=== PATIENT | female | born 1950 | race Caucasian/White ===

== ENCOUNTER → 2016-09-26 | Outpatient (CLI) | payer OTHER, BC ==
[~2016-09-26] MED LIST: ALLOPURINOL100 MG PO; ALPRAZOLAM0.25 M2 PO; ASPIRIN325 MG PO; BENICAR HCT 401 EACH PO; CELEBREX200 MG PO; CENTRUM SILV1 TABLE1 PO; CENTRUM SILVER1 EAC4 PO; CONZIP100 MG PO; CRESTOR10 MG PO; CYCLOBENZAPRINE10 MG PO; CYMBALTA60 MG PO; DICLOFENAC SODI75 MG PO; ENDOCET 5-3251 EACH PO; LEVOTHYROXINE150 MCG PO; LOPRESSOR25 MG PO; LOPRESSOR50 MG PO; Levothroid,Synthroid PO; MICRO-K,K-DUR,10 MEQ PO; MODAFINIL200 MG PO; NEXIUM40 MG PO; OXYCODONE-APAP1 EACH PO; PRISTIQ50 MG PO; Provigil PO; SYNTHROID25 MCG PO; VITAMIN B-122500 MCG SL; VITAMIN D22000 UNIT PO; VITAMIN D250000 UNIT PO; Vicodin,Lortab 5/500 PO; Vitamin B-12 PO; XANAX0.5 MG PO
== END | disposition home or self-care (01) ==
LOC: OPR 08:45 → EDSTATUS 09:00 → OPR 09:00
PROC: 0TB03ZX Excision of Right Kidney, Percutaneous Approach, Diagnostic (ICD-10-PCS; principal; 2016-09-26)
DX: N18.9 Chronic kidney disease, unspecified (principal); Z98.84 Bariatric surgery status
CPT/HCPCS: 77012; 88305 90; 88313 90; 88346 90; 88348 90; J3010

== ENCOUNTER 2017-09-25 14:22 | Inpatient (IN) | payer OTHER, BC ==
[~2017-09-25] VITALS: Ht 162.6 cm; Wt 92.0 kg
[~2017-09-25 14:22] MED LIST changes: +LITE COAT ASPI325 M1 PO
[2017-09-25 15:24] LABS: HEMATOCRIT 40.1 % (36.0-46.0); MCH 31.3 PG (29.0-34.0); MCHC 34.9 G/DL (30.0-36.0); MCV 89.7 FL (83-99); PLATELET COUNT 485 K/uL (156-360); RBC DIS.WIDTH-CV 14.9 % (11.8-14.6); RBC DIS.WIDTH-SD 48.9 % (39-53); RED BLOOD COUNT 4.47 M/uL (3.80-5.20); WHITE BLOOD COUNT 29.8 K/uL (4.1-10.2)
[2017-09-25 15:27] LABS: APPEARANCE SL.HAZY ((CLEAR)); BILIRUBIN NEGATIVE; BLOOD NEGATIVE; COLOR YELLOW ((YELLOW)); GLUCOSE (STRIP) NEGATIVE; KETONES NEGATIVE; LEUKOCYTES MODERATE; NITRITE NEGATIVE; PROTEIN (STRIP) NEGATIVE; SPECIFIC GRAVITY 1.011 (1.000-1.030); UROBILINOGEN 0.2 MG/DL (0.2-1.0)
[2017-09-25 15:35] LABS: ALBUMIN 3.9 g/dL (3.2-4.8); CHLORIDE 98 mEq/L (99-109); POTASSIUM 4.6 mEq/L (3.7-5.4); SODIUM 134 mEq/L (136-147)
[2017-09-25 15:37] LABS: GLUCOSE 137 mg/dL (70-99)
[2017-09-25 15:38] LABS: TOTAL PROTEIN 7.9 g/dL (6.4-8.3)
[2017-09-25 15:39] LABS: TOTAL BILIRUBIN 0.4 mg/dL (0.0-1.0)
[2017-09-25 15:40] LABS: BACTERIA RARE /HPF; EPITHELIAL CELLS 1+ /HPF; MUCUS TRACE /LPF; RED BLOOD CELLS 0-5 /HPF (0-5); UCUL ADDED? YES; WHITE BLOOD CELLS 20-30 /HPF (0-5)
[2017-09-25 15:41] LABS: ALKALINE PHOSPHATASE 112 IU/L (3-129); CREATININE 5.3 mg/dL (0.6-1.3); GFR ESTIMATE (CALCULATED) 9 mL/min/
[2017-09-25 15:43] LABS: AST (GOT) 14 IU/L (2-34)
[2017-09-25 15:44] LABS: ALT (GPT) 7 IU/L (3-49)
[2017-09-25 15:53] LABS: UREA NITROGEN (BUN) 136 mg/dL (9-23)
[2017-09-25 16:02] LABS: LIPASE 1436 U/L (1.0-51.0)
[2017-09-25 16:45] LABS: CARBON DIOXIDE (BICARBONATE) 18.4 MEQ/L (20-31)
[2017-09-25] MEDS ORDERED: XANAX0.5 MG PO (17:46)
[2017-09-25] MEDS ORDERED: LASIX80 MG PO (17:50)
[2017-09-25] MEDS ORDERED: PRILOSEC20 MG PO (17:50)
[2017-09-25] MEDS ORDERED: CRESTOR10 MG PO (17:50)
[2017-09-25] MEDS ORDERED: ROCALTROL0.25 MCG PO (17:50)
[2017-09-25] MEDS ORDERED: COLCRYS0.6 MG PO (17:51)
[2017-09-25] MEDS ORDERED: PREDNISONE20 MG PO (17:52)
[2017-09-25 17:59] LABS: AMYLASE 568 IU/L (1-118)
[2017-09-25 22:27] VITALS: BP 106/56
[2017-09-25 23:35] VITALS: BP 99/55
[2017-09-26 07:18] VITALS: BP 115/63
[2017-09-26 07:31] LABS: ALKALINE PHOSPHATASE 72 IU/L (3-129); ALT (GPT) 7 IU/L (3-49); AST (GOT) 13 IU/L (2-34); CHLORIDE 100 MEQ/L (99-109); LIPASE 516 U/L (1.0-51.0); POTASSIUM 4.3 MEQ/L (3.7-5.4); SODIUM 140 MEQ/L (136-147); TOTAL BILIRUBIN 0.3 MG/DL (0.0-1.0); TOTAL PROTEIN 5.6 G/DL (6.4-8.3)
[2017-09-26 07:31] LABS: BASOPHIL (%) 0.1 % (0-1); EOSINOPHIL (%) 0.4 % (0-5); EOSINOPHIL COUNT 0.1 K/uL (0-0.3); HEMATOCRIT 35.6 % (36.0-46.0); LYMPHOCYTE (%) 8.3 % (15-42); MCH 30.5 PG (29.0-34.0); MCHC 32.6 G/DL (30.0-36.0); MONOCYTE (%) 5.9 % (3-12); MONOCYTE COUNT 1.4 K/uL (0-0.8); NEUTROPHIL (%) 84.3 % (45-76); NEUTROPHIL COUNT 20.3 K/uL (1.8-6.4); PLATELET COUNT 396 K/uL (156-360); RBC DIS.WIDTH-CV 15.5 % (11.8-14.6); RBC DIS.WIDTH-SD 53.6 % (39-53); WHITE BLOOD COUNT 24.1 K/uL (4.1-10.2)
[2017-09-26 07:32] LABS: GLUCOSE 94 mg/dL (70-99)
[2017-09-26 07:33] LABS: CREATININE 4.2 MG/DL (0.6-1.3); GFR ESTIMATE (CALCULATED) 11 mL/min/; UREA NITROGEN (BUN) 121 mg/dL (9-23)
[2017-09-26 07:35] LABS: HEMOGLOBIN 11.6 G/DL (11.9-15.5); MCV 93.7 FL (83-99)
[2017-09-26 16:35] VITALS: BP 123/68
[2017-09-26 22:58] VITALS: BP 108/52
[2017-09-27 03:41] VITALS: BP 98/56
[2017-09-27 06:37] LABS: BASOPHIL (%) 0.1 % (0-1); EOSINOPHIL (%) 5.2 % (0-5); EOSINOPHIL COUNT 0.9 K/uL (0-0.3); HEMATOCRIT 34.2 % (36.0-46.0); IMMATURE GRANULOCYTE (%) 0.5 % (0.0-0.7); LYMPHOCYTE (%) 12.7 % (15-42); LYMPHOCYTE COUNT 2.1 K/uL (1.0-2.8); MCH 30.2 PG (29.0-34.0); MCHC 32.2 G/DL (30.0-36.0); MONOCYTE (%) 7.1 % (3-12); MONOCYTE COUNT 1.2 K/uL (0-0.8); NEUTROPHIL (%) 74.4 % (45-76); NEUTROPHIL COUNT 12.4 K/uL (1.8-6.4); PLATELET COUNT 401 K/uL (156-360); RBC DIS.WIDTH-CV 15.6 % (11.8-14.6); RBC DIS.WIDTH-SD 53.3 % (39-53); RED BLOOD COUNT 3.64 M/uL (3.80-5.20); WHITE BLOOD COUNT 16.7 K/uL (4.1-10.2)
[2017-09-27 07:13] LABS: ALBUMIN 2.9 G/DL (3.2-4.8); ALKALINE PHOSPHATASE 66 IU/L (3-129); ALT (GPT) 8 IU/L (3-49); AST (GOT) 16 IU/L (2-34); CHLORIDE 102 MEQ/L (99-109); CREATININE 3.8 MG/DL (0.6-1.3); GFR ESTIMATE (CALCULATED) 13 mL/min/; GLUCOSE 79 mg/dL (70-99); PHOSPHORUS 7.3 mg/dL (2.5-4.9); POTASSIUM 3.7 MEQ/L (3.7-5.4); SODIUM 145 MEQ/L (136-147); TOTAL BILIRUBIN 0.4 MG/DL (0.0-1.0); TOTAL PROTEIN 5.5 G/DL (6.4-8.3)
[2017-09-27 07:14] LABS: UREA NITROGEN (BUN) 102 mg/dL (9-23)
[2017-09-27 07:53] VITALS: BP 135/59
[2017-09-27 09:53] LABS: CHLORIDE 101 MEQ/L (99-109); CREATININE 3.8 MG/DL (0.6-1.3); GFR ESTIMATE (CALCULATED) 13 mL/min/; GLUCOSE 80 mg/dL (70-99); LIPASE 114 U/L (1.0-51.0); POTASSIUM 3.3 MEQ/L (3.7-5.4); SODIUM 142 MEQ/L (136-147)
[2017-09-27 09:55] LABS: UREA NITROGEN (BUN) 105 mg/dL (9-23)
[2017-09-27 11:45] VITALS: BP 108/57
[2017-09-27 15:22] LABS: MAGNESIUM 2.2 mg/dl (1.3-2.7)
[2017-09-27 16:14] VITALS: BP 106/56
[2017-09-27 19:30] VITALS: BP 111/56
[2017-09-28] VITALS (7 sets, daily range): BP systolic 105–151; BP diastolic 54–66
[2017-09-28 06:52] LABS: BASOPHIL (%) 0.3 % (0-1); EOSINOPHIL (%) 6.7 % (0-5); EOSINOPHIL COUNT 0.8 K/uL (0-0.3); HEMATOCRIT 32.2 % (36.0-46.0); HEMOGLOBIN 10.3 G/DL (11.9-15.5); IMMATURE GRANULOCYTE (%) 0.4 % (0.0-0.7); LYMPHOCYTE (%) 19.8 % (15-42); LYMPHOCYTE COUNT 2.4 K/uL (1.0-2.8); NEUTROPHIL (%) 64.8 % (45-76); NEUTROPHIL COUNT 7.7 K/uL (1.8-6.4); PLATELET COUNT 378 K/uL (156-360); RBC DIS.WIDTH-CV 15.9 % (11.8-14.6); RBC DIS.WIDTH-SD 56.4 % (39-53); RED BLOOD COUNT 3.32 M/uL (3.80-5.20); WHITE BLOOD COUNT 11.9 K/uL (4.1-10.2)
[2017-09-28 07:11] LABS: ALBUMIN 2.7 G/DL (3.2-4.8); ALKALINE PHOSPHATASE 56 IU/L (3-129); ALT (GPT) 8 IU/L (3-49); AST (GOT) 17 IU/L (2-34); CHLORIDE 107 MEQ/L (99-109); CREATININE 3.2 MG/DL (0.6-1.3); GFR ESTIMATE (CALCULATED) 15 mL/min/; GLUCOSE 91 mg/dL (70-99); PHOSPHORUS 5.1 mg/dL (2.5-4.9); SODIUM 145 MEQ/L (136-147); TOTAL BILIRUBIN 0.4 MG/DL (0.0-1.0); TOTAL PROTEIN 5.2 G/DL (6.4-8.3); UREA NITROGEN (BUN) 88 mg/dL (9-23)
[2017-09-28 07:12] LABS: POTASSIUM 4.2 MEQ/L (3.7-5.4)
[2017-09-29 06:53] LABS: ALBUMIN 2.7 G/DL (3.2-4.8); ALKALINE PHOSPHATASE 54 IU/L (3-129); ALT (GPT) 7 IU/L (3-49); AST (GOT) 14 IU/L (2-34); CHLORIDE 107 MEQ/L (99-109); GFR ESTIMATE (CALCULATED) 21 mL/min/; PHOSPHORUS 3.4 mg/dL (2.5-4.9); POTASSIUM 3.6 MEQ/L (3.7-5.4); SODIUM 138 MEQ/L (136-147); TOTAL BILIRUBIN 0.4 MG/DL (0.0-1.0); TOTAL PROTEIN 5.3 G/DL (6.4-8.3); UREA NITROGEN (BUN) 62 mg/dL (9-23)
[2017-09-29 06:55] LABS: CREATININE 2.4 MG/DL (0.6-1.3); GLUCOSE 147 mg/dL (70-99)
[2017-09-29 07:43] VITALS: BP 100/57
[2017-09-29 16:31] VITALS: BP 106/70
[2017-09-29 23:01] VITALS: BP 110/55
[2017-09-30 06:45] LABS: HEMATOCRIT 32.4 % (36.0-46.0); HEMOGLOBIN 10.2 G/DL (11.9-15.5); MCH 30.1 PG (29.0-34.0); MCHC 31.5 G/DL (30.0-36.0); MCV 95.6 FL (83-99); PLATELET COUNT 378 K/uL (156-360); RBC DIS.WIDTH-CV 15.5 % (11.8-14.6); RBC DIS.WIDTH-SD 53.7 % (39-53); RED BLOOD COUNT 3.39 M/uL (3.80-5.20)
[2017-09-30 07:27] LABS: ALBUMIN 2.6 G/DL (3.2-4.8); ALKALINE PHOSPHATASE 53 IU/L (3-129); ALT (GPT) 10 IU/L (3-49); AST (GOT) 13 IU/L (2-34); CHLORIDE 108 MEQ/L (99-109); IRON 49 MCG/DL (35-150); PHOSPHORUS 3.4 mg/dL (2.5-4.9); POTASSIUM 3.3 MEQ/L (3.7-5.4); SODIUM 142 MEQ/L (136-147); TOTAL PROTEIN 5.2 G/DL (6.4-8.3); TRANSFERRIN SATUR. 25 % (20-55); UREA NITROGEN (BUN) 36 mg/dL (9-23)
[2017-09-30 07:41] LABS: CREATININE 1.9 MG/DL (0.6-1.3); GFR ESTIMATE (CALCULATED) 28 mL/min/; GLUCOSE 104 mg/dL (70-99); TOTAL BILIRUBIN 0.3 MG/DL (0.0-1.0)
[2017-09-30 07:44] VITALS: BP 120/65
[2017-09-30 08:36] LABS: INTACT PARATHYROID HORMONE 158 pg/mL (10-69)
[2017-09-30 16:25] VITALS: BP 120/65
[2017-09-30 16:28] VITALS: BP 121/64
[2017-09-30 23:29] VITALS: BP 102/57
[2017-10-01 06:11] LABS: BASOPHIL (%) 0.2 % (0-1); EOSINOPHIL (%) 0.5 % (0-5); EOSINOPHIL COUNT 0.1 K/uL (0-0.3); HEMATOCRIT 33.2 % (36.0-46.0); HEMOGLOBIN 10.6 G/DL (11.9-15.5); IMMATURE GRANULOCYTE (%) 0.3 % (0.0-0.7); LYMPHOCYTE (%) 10.6 % (15-42); MCH 30.8 PG (29.0-34.0); MCHC 31.9 G/DL (30.0-36.0); MCV 96.5 FL (83-99); MONOCYTE (%) 1.5 % (3-12); MONOCYTE COUNT 0.1 K/uL (0-0.8); NEUTROPHIL (%) 86.9 % (45-76); NEUTROPHIL COUNT 8.2 K/uL (1.8-6.4); PLATELET COUNT 362 K/uL (156-360); RBC DIS.WIDTH-CV 15.7 % (11.8-14.6); RBC DIS.WIDTH-SD 55.4 % (39-53); RED BLOOD COUNT 3.44 M/uL (3.80-5.20); WHITE BLOOD COUNT 9.5 K/uL (4.1-10.2)
[2017-10-01 06:36] LABS: ALBUMIN 2.7 G/DL (3.2-4.8); ALKALINE PHOSPHATASE 65 IU/L (3-129); ALT (GPT) 9 IU/L (3-49); AST (GOT) 11 IU/L (2-34); CHLORIDE 112 MEQ/L (99-109); CREATININE 1.6 MG/DL (0.6-1.3); GFR ESTIMATE (CALCULATED) 34 mL/min/; GLUCOSE 175 mg/dL (70-99); PHOSPHORUS 3.2 mg/dL (2.5-4.9); POTASSIUM 4.6 MEQ/L (3.7-5.4); SODIUM 141 MEQ/L (136-147); TOTAL BILIRUBIN 0.2 MG/DL (0.0-1.0); TOTAL PROTEIN 4.9 G/DL (6.4-8.3); UREA NITROGEN (BUN) 28 mg/dL (9-23)
[2017-10-01 07:49] VITALS: BP 113/58
[2017-10-01 14:02] VITALS: BP 141/67
[2017-10-01 19:58] VITALS: BP 123/62
[2017-10-01 23:05] VITALS: BP 113/58
[2017-10-02 04:10] VITALS: BP 96/56
[2017-10-02 06:05] LABS: ALBUMIN 2.5 G/DL (3.2-4.8); CHLORIDE 110 MEQ/L (99-109); CREATININE 1.7 MG/DL (0.6-1.3); GFR ESTIMATE (CALCULATED) 32 mL/min/; GLUCOSE 168 mg/dL (70-99); PHOSPHORUS 3.2 mg/dL (2.5-4.9); POTASSIUM 4.6 MEQ/L (3.7-5.4); SODIUM 141 MEQ/L (136-147); UREA NITROGEN (BUN) 26 mg/dL (9-23)
[2017-10-02 07:35] VITALS: BP 108/79
[2017-10-02 08:29] LABS: HEMATOCRIT 32.7 % (36.0-46.0); HEMOGLOBIN 10.5 G/DL (11.9-15.5); MCH 31.5 PG (29.0-34.0); MCHC 32.1 G/DL (30.0-36.0); MCV 98.2 FL (83-99); PLATELET COUNT 348 K/uL (156-360); RED BLOOD COUNT 3.33 M/uL (3.80-5.20); WHITE BLOOD COUNT 20.8 K/uL (4.1-10.2)
[2017-10-02 08:59] LABS: ALKALINE PHOSPHATASE 68 IU/L (3-129); ALT (GPT) 23 IU/L (3-49); AST (GOT) 37 IU/L (2-34); LIPASE 21 U/L (1.0-51.0); TOTAL BILIRUBIN 0.2 MG/DL (0.0-1.0); TOTAL PROTEIN 4.8 G/DL (6.4-8.3)
[2017-10-02 16:33] VITALS: BP 125/58
[2017-10-02 22:45] VITALS: BP 117/60
[2017-10-03 06:21] LABS: HEMATOCRIT 29.6 % (36.0-46.0); HEMOGLOBIN 9.4 G/DL (11.9-15.5); MCH 30.8 PG (29.0-34.0); MCHC 31.8 G/DL (30.0-36.0); PLATELET COUNT 351 K/uL (156-360); RBC DIS.WIDTH-CV 15.8 % (11.8-14.6); RBC DIS.WIDTH-SD 55.7 % (39-53); RED BLOOD COUNT 3.05 M/uL (3.80-5.20); WHITE BLOOD COUNT 18.2 K/uL (4.1-10.2)
[2017-10-03 06:45] VITALS: BP 141/77
[2017-10-03 06:45] LABS: ALBUMIN 2.5 G/DL (3.2-4.8); ALKALINE PHOSPHATASE 72 IU/L (3-129); ALT (GPT) 23 IU/L (3-49); AST (GOT) 23 IU/L (2-34); CHLORIDE 110 MEQ/L (99-109); CREATININE 1.7 MG/DL (0.6-1.3); GFR ESTIMATE (CALCULATED) 32 mL/min/; GLUCOSE 134 mg/dL (70-99); POTASSIUM 5.2 MEQ/L (3.7-5.4); SODIUM 141 MEQ/L (136-147); TOTAL BILIRUBIN 0.2 MG/DL (0.0-1.0); TOTAL PROTEIN 4.7 G/DL (6.4-8.3); UREA NITROGEN (BUN) 28 mg/dL (9-23)
== END 2017-10-03 11:10 | disposition home health service (06) | DRG 417 ==
LOC: EME 14:22 → 5EAST 20:06 → EDOF 20:06 → ENRESERV 20:07 → 5EAST 21:46
PROVIDERS: Family Medicine; Internal Medicine; Internal Medicine Nephrology; Nurse Practitioner Family; Physician Assistant Surgical
PROC: 0FT44ZZ Resection of Gallbladder, Percutaneous Endoscopic Approach (ICD-10-PCS; principal; 2017-10-01)
DX: K80.10 Calculus of gallbladder with chronic cholecystitis without obstruction (principal); N17.0 Acute kidney failure with tubular necrosis; K85.10 Biliary acute pancreatitis without necrosis or infection; N39.0 Urinary tract infection, site not specified; N18.4 Chronic kidney disease, stage 4 (severe); I48.0 Paroxysmal atrial fibrillation; E03.9 Hypothyroidism, unspecified; E27.9 Disorder of adrenal gland, unspecified; E78.5 Hyperlipidemia, unspecified; K21.9 Gastro-esophageal reflux disease without esophagitis; E87.2 Acidosis; N25.81 Secondary hyperparathyroidism of renal origin; F41.9 Anxiety disorder, unspecified; N27.1 Small kidney, bilateral; F32.9 Major depressive disorder, single episode, unspecified; E66.9 Obesity, unspecified; I12.9 Hypertensive chronic kidney disease with stage 1 through stage 4 chronic kidney disease, or unspecified chronic kidney disease; E87.6 Hypokalemia; D64.9 Anemia, unspecified; E86.0 Dehydration; L27.0 Generalized skin eruption due to drugs and medicaments taken internally; Z68.33 Body mass index [BMI] 33.0-33.9, adult; Z98.84 Bariatric surgery status
CPT/HCPCS: 71046; 74176; 76705; 76770; 78227; 80048 91; 80053; 80069; 80076; 81003; 82150; 82306; 82803; 82948; 83540; 83605; 83690; 83735; 83970; 84100; 84132 91; 84466; 85025; 85027; 87040; 87086; 88304; 90686; 99281; 99285; A9537; C9113; J0330; J1100; J1170; J1720; J2270; J2405; J2543; J2710; J2805; J3010; J3370; J3480; J7030; J7050; S0074

== ENCOUNTER 2017-10-22 12:04 | Inpatient (IN) | payer OTHER, BC ==
[~2017-10-22] VITALS: Ht 162.6 cm; Wt 98.9 kg
[~2017-10-22 12:04] MED LIST changes: +COLCRYS0.6 MG PO; +LASIX80 MG PO; +PREDNISONE20 MG PO; +PRILOSEC20 MG PO; +ROCALTROL0.25 MCG PO
[2017-10-22 12:57] LABS: HEMATOCRIT 41.3 % (36.0-46.0); HEMOGLOBIN 13.5 G/DL (11.9-15.5); MCH 31.3 PG (29.0-34.0); MCHC 32.7 G/DL (30.0-36.0); MCV 95.6 FL (83-99); PLATELET COUNT 376 K/uL (156-360); RBC DIS.WIDTH-CV 15.4 % (11.8-14.6); RBC DIS.WIDTH-SD 54.1 % (39-53); RED BLOOD COUNT 4.32 M/uL (3.80-5.20); WHITE BLOOD COUNT 20.8 K/uL (4.1-10.2)
[2017-10-22 13:06] LABS: ALBUMIN 3.5 g/dL (3.2-4.8)
[2017-10-22 13:07] LABS: CHLORIDE 103 mEq/L (99-109); POTASSIUM 4.5 mEq/L (3.7-5.4); SODIUM 138 mEq/L (136-147)
[2017-10-22 13:09] LABS: GLUCOSE 93 mg/dL (70-99); TOTAL PROTEIN 6.7 g/dL (6.4-8.3)
[2017-10-22 13:11] LABS: TOTAL BILIRUBIN 0.6 mg/dL (0.0-1.0)
[2017-10-22 13:12] LABS: ALKALINE PHOSPHATASE 105 IU/L (3-129)
[2017-10-22 13:13] LABS: CREATININE 2.5 mg/dL (0.6-1.3); GFR ESTIMATE (CALCULATED) 20 mL/min/
[2017-10-22 13:14] LABS: AST (GOT) 18 IU/L (2-34); UREA NITROGEN (BUN) 49 mg/dL (9-23)
[2017-10-22 13:16] LABS: ALT (GPT) 24 IU/L (3-49)
[2017-10-22 14:42] LABS: BASOPHIL (%) 0.2 % (0-1); EOSINOPHIL (%) 0.8 % (0-5); EOSINOPHIL COUNT 0.2 K/uL (0-0.3); IMMATURE GRANULOCYTE (%) 1.3 % (0.0-0.7); LYMPHOCYTE (%) 13.1 % (15-42); LYMPHOCYTE COUNT 2.7 K/uL (1.0-2.8); MONOCYTE (%) 11.8 % (3-12); MONOCYTE COUNT 2.4 K/uL (0-0.8); NEUTROPHIL (%) 72.8 % (45-76); NEUTROPHIL COUNT 14.9 K/uL (1.8-6.4)
[2017-10-22 15:39] LABS: APPEARANCE CLEAR ((CLEAR)); BILIRUBIN NEGATIVE; BLOOD NEGATIVE; COLOR YELLOW ((YELLOW)); GLUCOSE (STRIP) NEGATIVE; KETONES NEGATIVE; LEUKOCYTES NEGATIVE; NITRITE NEGATIVE; PROTEIN (STRIP) NEGATIVE; SPECIFIC GRAVITY 1.009 (1.000-1.030); UCUL ADDED? NO; UROBILINOGEN 0.2 MG/DL (0.2-1.0)
[2017-10-22] MEDS ORDERED: K-DUR10 MEQ PO (16:29)
[2017-10-22] MEDS ORDERED: ALDACTONE50 MG PO (16:29)
[2017-10-22] MEDS ORDERED: TRAMADOL HCL50 MG PO (16:30)
[2017-10-22 19:12] VITALS: BP 106/61
[2017-10-22 23:54] VITALS: BP 118/65
[2017-10-23 03:50] VITALS: BP 95/54
[2017-10-23 04:15] VITALS: BP 100/54
[2017-10-23 11:41] VITALS: BP 111/51
[2017-10-23 16:01] VITALS: BP 104/55
[2017-10-23 19:47] VITALS: BP 108/59
[2017-10-24] VITALS (7 sets, daily range): BP systolic 97–131; BP diastolic 53–64
[2017-10-25 04:18] VITALS: BP 112/67
[2017-10-25 05:47] LABS: HEMATOCRIT 30.4 % (36.0-46.0); MCH 31.2 PG (29.0-34.0); MCHC 32.2 G/DL (30.0-36.0); MCV 96.8 FL (83-99); RBC DIS.WIDTH-CV 15.7 % (11.8-14.6); RBC DIS.WIDTH-SD 55.6 % (39-53)
[2017-10-25 05:48] LABS: HEMOGLOBIN 9.8 G/DL (11.9-15.5); RED BLOOD COUNT 3.14 M/uL (3.80-5.20)
[2017-10-25 05:58] LABS: CHLORIDE 109 MEQ/L (99-109); GLUCOSE 105 mg/dL (70-99); POTASSIUM 3.9 MEQ/L (3.7-5.4); SODIUM 138 MEQ/L (136-147)
[2017-10-25 05:59] LABS: CREATININE 1.4 MG/DL (0.6-1.3); GFR ESTIMATE (CALCULATED) 40 mL/min/; UREA NITROGEN (BUN) 15 mg/dL (9-23)
[2017-10-25 06:03] LABS: BASOPHIL (%) 0.2 % (0-1); EOSINOPHIL (%) 2.6 % (0-5); EOSINOPHIL COUNT 0.4 K/uL (0-0.3); HEMATOLOGY COMMENT 1 SN; IMMATURE GRANULOCYTE (%) 0.6 % (0.0-0.7); LYMPHOCYTE COUNT 2.4 K/uL (1.0-2.8); MONOCYTE (%) 14.6 % (3-12); NEUTROPHIL COUNT 9.1 K/uL (1.8-6.4); PLAT.SUFFICIENCY ADEQUATE; PLATELET COUNT UNABLE TO REPORT K/uL (156-360)
[2017-10-25 07:22] VITALS: BP 95/50
[2017-10-25] MEDS ORDERED: LASIX40 MG PO (08:40)
[2017-10-25] MEDS ORDERED: PANTOPRAZOLE SO40 MG PO (08:41)
[2017-10-25] MEDS ORDERED: CARAFATE100 MG/ML PO (08:51)
== END 2017-10-25 11:48 | disposition home or self-care (01) | DRG 381 ==
LOC: EME 12:04 → EDOF 16:52 → 5WEST 16:52 → EDOF 16:52 → ENRESERV 16:53 → 5WEST 18:59 → ENRESERV 10-24 14:30 → 5WEST 10-24 18:28
PROVIDERS: Internal Medicine; Specialist
PROC: 0DB68ZX Excision of Stomach, Via Natural or Artificial Opening Endoscopic, Diagnostic (ICD-10-PCS; principal; 2017-10-24)
DX: K28.9 Gastrojejunal ulcer, unspecified as acute or chronic, without hemorrhage or perforation (principal); N17.9 Acute kidney failure, unspecified; E78.5 Hyperlipidemia, unspecified; I10 Essential (primary) hypertension; M54.5 Low back pain; E03.9 Hypothyroidism, unspecified; E66.9 Obesity, unspecified; G89.4 Chronic pain syndrome; F41.9 Anxiety disorder, unspecified; R19.7 Diarrhea, unspecified; K29.70 Gastritis, unspecified, without bleeding; R10.9 Unspecified abdominal pain; F32.9 Major depressive disorder, single episode, unspecified; D72.829 Elevated white blood cell count, unspecified; M19.90 Unspecified osteoarthritis, unspecified site; K21.9 Gastro-esophageal reflux disease without esophagitis; Z98.84 Bariatric surgery status; Z90.49 Acquired absence of other specified parts of digestive tract; Z88.1 Allergy status to other antibiotic agents; Z88.8 Allergy status to other drugs, medicaments and biological substances; Z68.37 Body mass index [BMI] 37.0-37.9, adult
CPT/HCPCS: 74176; 80048; 80053; 81003; 82272; 83605; 85025; 85027; 87040; 87493; 87641; 88305; 88342 TC; 99281; 99285; C9113; G0378; J0692; J1644; J2270; J2405; J7042; J7120

== ENCOUNTER 2017-11-02 16:29 | Inpatient (IN) | payer OTHER, BC ==
[~2017-11-02] VITALS: Ht 162.6 cm; Wt 89.4 kg
[~2017-11-02 16:29] MED LIST changes: +ALDACTONE50 MG PO; +CARAFATE100 MG/ML PO; +K-DUR10 MEQ PO; +LASIX40 MG PO; +PANTOPRAZOLE SO40 MG PO; +TRAMADOL HCL50 MG PO
[2017-11-02 17:53] VITALS: BP 115/74
[2017-11-02 19:36] VITALS: BP 100/52
[2017-11-02 20:26] LABS: IRON 37 MCG/DL (35-150); TRANSFERRIN (TIBC) 222.3 mg/dL (215-380); TRANSFERRIN SATUR. 17 % (20-55)
[2017-11-02 20:43] LABS: FERRITIN 40 NG/ML (10-291)
[2017-11-02 20:59] LABS: FOLIC ACID (FOLATE) > 22.0 NG/ML (5.0-22.0)
[2017-11-02 23:31] VITALS: BP 116/58
[2017-11-03 03:49] VITALS: BP 105/52
[2017-11-03 06:18] LABS: HEMATOCRIT 32.1 % (36.0-46.0); HEMOGLOBIN 10.3 G/DL (11.9-15.5); MCH 30.7 PG (29.0-34.0); MCHC 32.1 G/DL (30.0-36.0); MCV 95.8 FL (83-99); PLATELET COUNT 338 K/uL (156-360); RBC DIS.WIDTH-CV 14.8 % (11.8-14.6); RBC DIS.WIDTH-SD 51.7 % (39-53); RED BLOOD COUNT 3.35 M/uL (3.80-5.20); WHITE BLOOD COUNT 6.5 K/uL (4.1-10.2)
[2017-11-03 06:52] LABS: ALBUMIN 2.5 G/DL (3.2-4.8); ALKALINE PHOSPHATASE 85 IU/L (3-129); ALT (GPT) 9 IU/L (3-49); AST (GOT) 16 IU/L (2-34); CHLORIDE 105 MEQ/L (99-109); CREATININE 2.5 MG/DL (0.6-1.3); GFR ESTIMATE (CALCULATED) 20 mL/min/; GLUCOSE 114 mg/dL (70-99); SODIUM 137 MEQ/L (136-147); TOTAL BILIRUBIN 0.4 MG/DL (0.0-1.0); TOTAL PROTEIN 4.5 G/DL (6.4-8.3); UREA NITROGEN (BUN) 18 mg/dL (9-23)
[2017-11-03 06:53] LABS: POTASSIUM 4.1 MEQ/L (3.7-5.4)
[2017-11-03 07:10] LABS: LIPASE 20 U/L (1.0-51.0)
[2017-11-03 07:18] VITALS: BP 100/65
[2017-11-03 10:44] LABS: C DIFF TOXIN NEGATIVE (NEGATIVE)
[2017-11-03 11:36] VITALS: BP 113/65
[2017-11-03] MEDS ORDERED: BENTYL10 MG PO (13:48)
[2017-11-03 15:43] VITALS: BP 114/66
[2017-11-04 00:28] VITALS: BP 103/58
[2017-11-04 07:10] VITALS: BP 108/58
[2017-11-04] MEDS ORDERED: METRONIDAZOLE500 MG PO (14:29)
[2017-11-04] MEDS ORDERED: LOPERAMIDE2 MG PO (14:30)
[2017-11-04 16:23] VITALS: BP 90/51
[2017-11-04 17:01] VITALS: BP 117/58
== END 2017-11-04 17:21 | disposition home or self-care (01) | DRG 384 ==
LOC: 2EAST 16:29 → ENRESERV 16:31 → 2EAST 17:26 → ENPENDDIS 11-04 → 2EAST 11-04 17:21
PROVIDERS: Internal Medicine; Specialist
DX: K25.9 Gastric ulcer, unspecified as acute or chronic, without hemorrhage or perforation (principal); K52.9 Noninfective gastroenteritis and colitis, unspecified; R19.7 Diarrhea, unspecified; G89.4 Chronic pain syndrome; I12.9 Hypertensive chronic kidney disease with stage 1 through stage 4 chronic kidney disease, or unspecified chronic kidney disease; E86.0 Dehydration; E78.5 Hyperlipidemia, unspecified; E03.9 Hypothyroidism, unspecified; N18.3 Chronic kidney disease, stage 3 (moderate); F32.9 Major depressive disorder, single episode, unspecified; E66.9 Obesity, unspecified; D64.9 Anemia, unspecified; E27.8 Other specified disorders of adrenal gland; R63.4 Abnormal weight loss; Z68.33 Body mass index [BMI] 33.0-33.9, adult; Z88.1 Allergy status to other antibiotic agents; Z98.84 Bariatric surgery status
CPT/HCPCS: 71045; 76770; 80053; 82150; 82150 91; 82607; 82728; 82746; 83540; 83690; 84466; 85025; 85027; 87177; 87493; 87506; C9113; J0744; J7030; S0030

== ENCOUNTER 2017-11-22 13:31 | Inpatient (IN) | payer OTHER, BC ==
[~2017-11-22] VITALS: Ht 162.6 cm; Wt 88.4 kg
[~2017-11-22 13:31] MED LIST changes: +BENTYL10 MG PO; +LOPERAMIDE2 MG PO; +METRONIDAZOLE500 MG PO
[2017-11-22 14:00] LABS: HEMATOCRIT 31.6 % (36.0-46.0); HEMOGLOBIN 10.1 G/DL (11.9-15.5); MCH 30.5 PG (29.0-34.0); MCV 95.5 FL (83-99); RBC DIS.WIDTH-SD 52.4 % (39-53); RED BLOOD COUNT 3.31 M/uL (3.80-5.20); WHITE BLOOD COUNT 9.5 K/uL (4.1-10.2)
[2017-11-22 14:18] LABS: PLATELET COUNT 249 K/uL (156-360)
[2017-11-22 14:19] LABS: ALBUMIN 2.8 g/dL (3.2-4.8); CHLORIDE 111 mEq/L (99-109); SODIUM 138 mEq/L (136-147)
[2017-11-22 14:21] LABS: GLUCOSE 89 mg/dL (70-99); TOTAL PROTEIN 5.7 g/dL (6.4-8.3)
[2017-11-22 14:23] LABS: TOTAL BILIRUBIN 0.4 mg/dL (0.0-1.0)
[2017-11-22 14:25] LABS: ALKALINE PHOSPHATASE 102 IU/L (3-129); GFR ESTIMATE (CALCULATED) 26 mL/min/
[2017-11-22 14:26] LABS: UREA NITROGEN (BUN) 20 mg/dL (9-23)
[2017-11-22 14:27] LABS: AST (GOT) 21 IU/L (2-34)
[2017-11-22 14:28] LABS: ALT (GPT) 8 IU/L (3-49)
[2017-11-22 14:29] LABS: POTASSIUM 6.2 mEq/L (3.7-5.4)
[2017-11-22 14:39] LABS: LIPASE 16 U/L (1.0-51.0)
[2017-11-22 14:48] LABS: TROP-I INTERPRETATION NEGATIVE; TROPONIN-I < 0.01 ng/mL (0.0-0.30)
[2017-11-22 14:51] LABS: APPEARANCE CLEAR ((CLEAR)); BILIRUBIN NEGATIVE; BLOOD NEGATIVE; COLOR YELLOW ((YELLOW)); GLUCOSE (STRIP) NEGATIVE; KETONES NEGATIVE; LEUKOCYTES NEGATIVE; NITRITE NEGATIVE; PROTEIN (STRIP) NEGATIVE; UCUL ADDED? NO; UROBILINOGEN 0.2 MG/DL (0.2-1.0)
[2017-11-22] MEDS ORDERED: XANAX0.5 MG PO (16:33)
[2017-11-22] MEDS ORDERED: VITAMIN D-32000 UNI2 PO (16:44)
[2017-11-22] MEDS ORDERED: LASIX40 MG PO (16:47)
[2017-11-22] MEDS ORDERED: LOPRESSOR25 MG PO (16:48)
[2017-11-22] MEDS ORDERED: CARAFATE100 MG/ML PO (16:50)
[2017-11-22] MEDS ORDERED: PARICALCITOL1 MCG PO (16:52)
[2017-11-22] MEDS ORDERED: PROMETHAZINE HC25 M1 PO (16:53)
[2017-11-22 19:03] VITALS: BP 100/70
[2017-11-22 20:11] VITALS: BP 106/56
[2017-11-22 23:39] VITALS: BP 122/56
[2017-11-23 06:31] LABS: HEMOGLOBIN 9.4 G/DL (11.9-15.5); MCH 29.6 PG (29.0-34.0); MCHC 31.3 G/DL (30.0-36.0); MCV 94.3 FL (83-99); PLATELET COUNT 235 K/uL (156-360); RBC DIS.WIDTH-CV 14.9 % (11.8-14.6); RBC DIS.WIDTH-SD 52.1 % (39-53); RED BLOOD COUNT 3.18 M/uL (3.80-5.20); WHITE BLOOD COUNT 8.5 K/uL (4.1-10.2)
[2017-11-23 06:54] LABS: ALBUMIN 2.4 G/DL (3.2-4.8); ALKALINE PHOSPHATASE 79 IU/L (3-129); ALT (GPT) 5 IU/L (3-49); AST (GOT) 13 IU/L (2-34); CHLORIDE 109 MEQ/L (99-109); CREATININE 1.8 MG/DL (0.6-1.3); GFR ESTIMATE (CALCULATED) 30 mL/min/; GLUCOSE 96 mg/dL (70-99); SODIUM 138 MEQ/L (136-147); TOTAL BILIRUBIN 0.5 MG/DL (0.0-1.0); TOTAL PROTEIN 4.3 G/DL (6.4-8.3); UREA NITROGEN (BUN) 19 mg/dL (9-23)
[2017-11-23 06:59] LABS: POTASSIUM 4.3 MEQ/L (3.7-5.4)
[2017-11-23 07:21] VITALS: BP 130/66
[2017-11-23 17:00] VITALS: BP 109/67
[2017-11-24] VITALS: BP 120/70
[2017-11-24 07:01] LABS: ALBUMIN 2.6 G/DL (3.2-4.8); CHLORIDE 107 MEQ/L (99-109); CREATININE 1.7 MG/DL (0.6-1.3); GFR ESTIMATE (CALCULATED) 32 mL/min/; GLUCOSE 103 mg/dL (70-99); POTASSIUM 3.9 MEQ/L (3.7-5.4); SODIUM 140 MEQ/L (136-147); UREA NITROGEN (BUN) 18 mg/dL (9-23)
[2017-11-24 07:09] LABS: PHOSPHORUS 4.8 mg/dL (2.5-4.9)
[2017-11-24 07:10] VITALS: BP 117/57
[2017-11-24 15:00] VITALS: BP 136/62
[2017-11-25] VITALS: BP 122/70
[2017-11-25 07:35] LABS: ALBUMIN 2.6 G/DL (3.2-4.8); CHLORIDE 106 MEQ/L (99-109); GFR ESTIMATE (CALCULATED) 26 mL/min/; GLUCOSE 101 mg/dL (70-99); PHOSPHORUS 4.8 mg/dL (2.5-4.9); POTASSIUM 4.2 MEQ/L (3.7-5.4); SODIUM 138 MEQ/L (136-147); UREA NITROGEN (BUN) 23 mg/dL (9-23)
[2017-11-25 09:25] VITALS: BP 110/55
[2017-11-25 15:00] VITALS: BP 128/63
[2017-11-25 23:28] VITALS: BP 139/67
[2017-11-26 06:21] LABS: ALBUMIN 2.7 G/DL (3.2-4.8); CHLORIDE 108 MEQ/L (99-109); CREATININE 1.8 MG/DL (0.6-1.3); GFR ESTIMATE (CALCULATED) 30 mL/min/; GLUCOSE 93 mg/dL (70-99); PHOSPHORUS 4.4 mg/dL (2.5-4.9); POTASSIUM 3.4 MEQ/L (3.7-5.4); SODIUM 141 MEQ/L (136-147); UREA NITROGEN (BUN) 21 mg/dL (9-23)
[2017-11-26 13:49] VITALS: BP 108/62
[2017-11-26 16:12] VITALS: BP 131/67
[2017-11-26 23:25] VITALS: BP 117/56
[2017-11-27 06:02] LABS: BASOPHIL (%) 0.4 % (0-1); EOSINOPHIL (%) 3.9 % (0-5); EOSINOPHIL COUNT 0.3 K/uL (0-0.3); HEMATOCRIT 31.7 % (36.0-46.0); IMMATURE GRANULOCYTE (%) 0.1 % (0.0-0.7); LYMPHOCYTE (%) 32.9 % (15-42); LYMPHOCYTE COUNT 2.6 K/uL (1.0-2.8); MCH 29.2 PG (29.0-34.0); MCHC 31.5 G/DL (30.0-36.0); MCV 92.7 FL (83-99); MONOCYTE (%) 10.5 % (3-12); MONOCYTE COUNT 0.8 K/uL (0-0.8); NEUTROPHIL (%) 52.2 % (45-76); NEUTROPHIL COUNT 4.1 K/uL (1.8-6.4); RBC DIS.WIDTH-SD 51.2 % (39-53); RED BLOOD COUNT 3.42 M/uL (3.80-5.20); WHITE BLOOD COUNT 7.9 K/uL (4.1-10.2)
[2017-11-27 06:27] LABS: PLATELET COUNT 325 K/uL (156-360)
[2017-11-27 07:48] VITALS: BP 156/72
[2017-11-27 07:55] LABS: ALBUMIN 3.3 G/DL (3.2-4.8); ALKALINE PHOSPHATASE 74 IU/L (3-129); ALT (GPT) 6 IU/L (3-49); AST (GOT) 13 IU/L (2-34); CHLORIDE 105 MEQ/L (99-109); CREATININE 1.5 MG/DL (0.6-1.3); GFR ESTIMATE (CALCULATED) 37 mL/min/; GLUCOSE 92 mg/dL (70-99); IRON 23 MCG/DL (35-150); POTASSIUM 3.1 MEQ/L (3.7-5.4); SODIUM 141 MEQ/L (136-147); TOTAL BILIRUBIN 0.5 MG/DL (0.0-1.0); TRANSFERRIN (TIBC) 212.4 mg/dL (215-380); TRANSFERRIN SATUR. 11 % (20-55); UREA NITROGEN (BUN) 21 mg/dL (9-23)
[2017-11-27 08:00] LABS: TOTAL PROTEIN 6.1 G/DL (6.4-8.3)
[2017-11-27 08:57] LABS: INTER. NORMALIZED RATIO 1.1
[2017-11-27 09:00] LABS: PTT 27.1 SEC (25-37)
[2017-11-27 09:17] LABS: FERRITIN 23 NG/ML (10-291)
[2017-11-27 09:25] LABS: FOLIC ACID (FOLATE) > 22.0 NG/ML (5.0-22.0)
[2017-11-27 09:58] LABS: MAGNESIUM 1.8 mg/dl (1.3-2.7)
[2017-11-27 16:57] VITALS: BP 126/59
[2017-11-27 23:25] VITALS: BP 136/72
[2017-11-28 08:36] VITALS: BP 146/69
[2017-11-28 09:37] LABS: CHLORIDE 106 MEQ/L (99-109); CREATININE 1.4 MG/DL (0.6-1.3); GFR ESTIMATE (CALCULATED) 40 mL/min/; GLUCOSE 157 mg/dL (70-99); MAGNESIUM 1.6 mg/dl (1.3-2.7); POTASSIUM 3.6 MEQ/L (3.7-5.4); SODIUM 141 MEQ/L (136-147); UREA NITROGEN (BUN) 20 mg/dL (9-23)
[2017-11-28] MEDS ORDERED: TYLENOL REGULA325 MG PO (13:04)
[2017-11-28] MEDS ORDERED: FUROSEMIDE80 MG PO (13:05)
[2017-11-28] MEDS ORDERED: MAG-OXIDE400 MG PO (13:06)
== END 2017-11-28 14:28 | disposition home or self-care (01) | DRG 683 ==
LOC: EME 13:31 → 5EAST 15:35 → EDOF 15:35 → ENRESERV 15:41 → 5EAST 16:47
PROVIDERS: Family Medicine; Internal Medicine; Internal Medicine Nephrology; Nurse Practitioner Acute Care
PROC: 0BBC3ZX Excision of Right Upper Lung Lobe, Percutaneous Approach, Diagnostic (ICD-10-PCS; principal; 2017-11-27)
DX: N17.0 Acute kidney failure with tubular necrosis (principal); E87.5 Hyperkalemia; E88.09 Other disorders of plasma-protein metabolism, not elsewhere classified; R91.8 Other nonspecific abnormal finding of lung field; I13.0 Hypertensive heart and chronic kidney disease with heart failure and stage 1 through stage 4 chronic kidney disease, or unspecified chronic kidney disease; I50.32 Chronic diastolic (congestive) heart failure; N18.3 Chronic kidney disease, stage 3 (moderate); I95.9 Hypotension, unspecified; N39.0 Urinary tract infection, site not specified; L03.116 Cellulitis of left lower limb; L03.115 Cellulitis of right lower limb; N25.81 Secondary hyperparathyroidism of renal origin; K21.9 Gastro-esophageal reflux disease without esophagitis; I48.0 Paroxysmal atrial fibrillation; F32.9 Major depressive disorder, single episode, unspecified; E66.9 Obesity, unspecified; G89.4 Chronic pain syndrome; E78.5 Hyperlipidemia, unspecified; I42.9 Cardiomyopathy, unspecified; I27.20 Pulmonary hypertension, unspecified; E55.9 Vitamin D deficiency, unspecified; M10.9 Gout, unspecified; F41.9 Anxiety disorder, unspecified; E27.9 Disorder of adrenal gland, unspecified; K25.9 Gastric ulcer, unspecified as acute or chronic, without hemorrhage or perforation; E03.9 Hypothyroidism, unspecified; Z77.22 Contact with and (suspected) exposure to environmental tobacco smoke (acute) (chronic); Z79.82 Long term (current) use of aspirin; Z86.73 Personal history of transient ischemic attack (TIA), and cerebral infarction without residual deficits; Z98.84 Bariatric surgery status; Z68.33 Body mass index [BMI] 33.0-33.9, adult
CPT/HCPCS: 71046; 71250; 77012; 80048; 80053; 80069; 81003; 82607; 82728; 82746; 83540; 83690; 83735; 84466; 84484; 85025; 85027; 85610; 85730; 88305; 88341 TC; 88342 TC; 93005; 99281; 99285; J1644; J1940; J3010; P9047

== ENCOUNTER → 2018-01-12 | Outpatient (CLI) | payer OTHER, BC ==
[~2018-01-12] MED LIST changes: +FUROSEMIDE80 MG PO; +MAG-OXIDE400 MG PO; +PARICALCITOL1 MCG PO; +PROMETHAZINE HC25 M1 PO; +TYLENOL REGULA325 MG PO; +VITAMIN D-32000 UNI2 PO
== END | disposition home or self-care (01) ==
LOC: RES 09:52
DX: R94.2 Abnormal results of pulmonary function studies (principal)
CPT/HCPCS: 94060; 94726; 94729

== ENCOUNTER 2018-02-20 15:16 | Inpatient (IN) | payer OTHER, BC ==
[~2018-02-20] VITALS: Ht 157.5 cm; Wt 80.4 kg
[2018-02-20 16:29] LABS: HEMATOCRIT 32.2 % (36.0-46.0); HEMOGLOBIN 10.4 G/DL (11.9-15.5); MCH 27.3 PG (29.0-34.0); MCHC 32.3 G/DL (30.0-36.0); MCV 84.5 FL (83-99); PLATELET COUNT 546 K/uL (156-360); RBC DIS.WIDTH-CV 16.9 % (11.8-14.6); RBC DIS.WIDTH-SD 50.9 % (39-53); RED BLOOD COUNT 3.81 M/uL (3.80-5.20); WHITE BLOOD COUNT 11.8 K/uL (4.1-10.2)
[2018-02-20 16:39] LABS: CHLORIDE 101 mEq/L (99-109); POTASSIUM 5.7 mEq/L (3.7-5.4); SODIUM 136 mEq/L (136-147)
[2018-02-20 16:40] LABS: GLUCOSE 114 mg/dL (70-99)
[2018-02-20 16:44] LABS: CREATININE 3.6 mg/dL (0.6-1.3); GFR ESTIMATE (CALCULATED) 13 mL/min/
[2018-02-20 16:45] LABS: UREA NITROGEN (BUN) 60 mg/dL (9-23)
[2018-02-20 16:50] LABS: TROP-I INTERPRETATION NEGATIVE; TROPONIN-I 0.01 ng/mL (0.0-0.30)
[2018-02-20 21:24] VITALS: BP 112/56
[2018-02-20 22:44] VITALS: BP 126/65
[2018-02-21 04:08] VITALS: BP 121/63
[2018-02-21 07:06] VITALS: BP 142/67
[2018-02-21] MEDS ORDERED: CARAFATE100 MG/ML PO ×2 (10:16→10:18)
[2018-02-21] MEDS ORDERED: XANAX0.5 MG PO (10:19)
[2018-02-21] MEDS ORDERED: OMEPRAZOLE20 MG PO (10:21)
[2018-02-21] MEDS ORDERED: LOPRESSOR25 MG PO (10:28)
[2018-02-21] MEDS ORDERED: D3 + K2 DOTS 11 EACH PO (10:30)
[2018-02-21] MEDS ORDERED: VITAMIN D31000 UNIT PO (10:31)
[2018-02-21] MEDS ORDERED: TUDORZA PRESS400 MCG IH (10:32)
[2018-02-21] MEDS ORDERED: DIFLUCAN200 MG PO (10:33)
[2018-02-21] MEDS ORDERED: HEPARIN SO5000 UNIT3 SC (10:34)
[2018-02-21 11:25] VITALS: BP 141/61
[2018-02-21 14:33] LABS: CHLORIDE 102 MEQ/L (99-109); GLUCOSE 125 mg/dL (70-99); PHOSPHORUS 4.9 mg/dL (2.5-4.9); POTASSIUM 4.8 MEQ/L (3.7-5.4); SODIUM 136 MEQ/L (136-147); UREA NITROGEN (BUN) 42 mg/dL (9-23); URIC ACID 7.2 mg/dL (3.1-9.2)
[2018-02-21 14:35] LABS: CREATININE 2.5 MG/DL (0.6-1.3); GFR ESTIMATE (CALCULATED) 20 mL/min/
[2018-02-21 15:09] VITALS: BP 122/65
[2018-02-21 19:30] VITALS: BP 126/70
[2018-02-21 23:43] VITALS: BP 128/60
[2018-02-22 03:44] VITALS: BP 122/63
[2018-02-22 06:19] LABS: BASOPHIL (%) 0.2 % (0-1); EOSINOPHIL (%) 0 % (0-5); HEMATOCRIT 27.1 % (36.0-46.0); HEMOGLOBIN 8.5 G/DL (11.9-15.5); IMMATURE GRANULOCYTE (%) 0.4 % (0.0-0.7); LYMPHOCYTE (%) 14.8 % (15-42); LYMPHOCYTE COUNT 0.8 K/uL (1.0-2.8); MCH 26.4 PG (29.0-34.0); MCHC 31.4 G/DL (30.0-36.0); MCV 84.2 FL (83-99); MONOCYTE (%) 1.4 % (3-12); MONOCYTE COUNT 0.1 K/uL (0-0.8); NEUTROPHIL (%) 83.2 % (45-76); NEUTROPHIL COUNT 4.2 K/uL (1.8-6.4); PLATELET COUNT 390 K/uL (156-360); RBC DIS.WIDTH-CV 16.6 % (11.8-14.6); RBC DIS.WIDTH-SD 50.9 % (39-53); RED BLOOD COUNT 3.22 M/uL (3.80-5.20); WHITE BLOOD COUNT 5.1 K/uL (4.1-10.2)
[2018-02-22 06:57] LABS: ALBUMIN 2.8 G/DL (3.2-4.8); ALKALINE PHOSPHATASE 104 IU/L (3-129); ALT (GPT) 8 IU/L (3-49); AST (GOT) 10 IU/L (2-34); CHLORIDE 103 MEQ/L (99-109); CREATININE 2.4 MG/DL (0.6-1.3); GFR ESTIMATE (CALCULATED) 21 mL/min/; GLUCOSE 182 mg/dL (70-99); POTASSIUM 5.2 MEQ/L (3.7-5.4); SODIUM 135 MEQ/L (136-147); TOTAL BILIRUBIN 0.2 MG/DL (0.0-1.0); TOTAL PROTEIN 5.4 G/DL (6.4-8.3); UREA NITROGEN (BUN) 40 mg/dL (9-23)
[2018-02-22 07:11] LABS: ALBUMIN 2.7 G/DL (3.2-4.8); CHLORIDE 104 MEQ/L (99-109); CREATININE 2.4 MG/DL (0.6-1.3); GFR ESTIMATE (CALCULATED) 21 mL/min/; GLUCOSE 187 mg/dL (70-99); PHOSPHORUS 4.4 mg/dL (2.5-4.9); POTASSIUM 5.1 MEQ/L (3.7-5.4); SODIUM 134 MEQ/L (136-147); TRANSFERRIN (TIBC) 226.2 mg/dL (215-380); UREA NITROGEN (BUN) 39 mg/dL (9-23)
[2018-02-22 07:15] LABS: IRON < 10 MCG/DL (35-150); TRANSFERRIN SATUR. 4 % (20-55)
[2018-02-22 07:35] VITALS: BP 118/68
[2018-02-22 11:37] VITALS: BP 131/66
[2018-02-22] MEDS ORDERED: HAIR-SKIN-NAIL1 EACH PO (14:55)
[2018-02-22] MEDS ORDERED: CYANOCOBAL1000 MCG/2 IM (15:01)
[2018-02-22] MEDS ORDERED: VITAMIN A10000 UNIT PO (15:04)
[2018-02-22 16:22] VITALS: BP 127/82
[2018-02-22 20:06] VITALS: BP 132/70
[2018-02-23] VITALS (7 sets, daily range): BP systolic 129–148; BP diastolic 67–73
[2018-02-23 06:43] LABS: ALBUMIN 3.2 G/DL (3.2-4.8); CHLORIDE 102 MEQ/L (99-109); CREATININE 2.5 MG/DL (0.6-1.3); GFR ESTIMATE (CALCULATED) 20 mL/min/; GLUCOSE 161 mg/dL (70-99); PHOSPHORUS 5.3 mg/dL (2.5-4.9); SODIUM 136 MEQ/L (136-147); UREA NITROGEN (BUN) 40 mg/dL (9-23)
[2018-02-24 03:25] VITALS: BP 147/75
[2018-02-24 06:37] LABS: CHLORIDE 103 MEQ/L (99-109); CREATININE 2.7 MG/DL (0.6-1.3); GFR ESTIMATE (CALCULATED) 19 mL/min/; GLUCOSE 136 mg/dL (70-99); PHOSPHORUS 5.5 mg/dL (2.5-4.9); SODIUM 135 MEQ/L (136-147); UREA NITROGEN (BUN) 52 mg/dL (9-23); URIC ACID 7.7 mg/dL (3.1-9.2)
[2018-02-24 07:10] VITALS: BP 162/84
[2018-02-24 15:10] VITALS: BP 164/76
[2018-02-25] VITALS: BP 160/74
[2018-02-25 06:33] LABS: HEMATOCRIT 30.6 % (36.0-46.0); HEMOGLOBIN 9.3 G/DL (11.9-15.5); MCHC 30.4 G/DL (30.0-36.0); MCV 85.5 FL (83-99); PLATELET COUNT 317 K/uL (156-360); RBC DIS.WIDTH-CV 16.6 % (11.8-14.6); RBC DIS.WIDTH-SD 51.6 % (39-53); RED BLOOD COUNT 3.58 M/uL (3.80-5.20); WHITE BLOOD COUNT 11.5 K/uL (4.1-10.2)
[2018-02-25 06:57] LABS: ALBUMIN 2.8 G/DL (3.2-4.8); ALKALINE PHOSPHATASE 80 IU/L (3-129); ALT (GPT) 9 IU/L (3-49); CHLORIDE 104 MEQ/L (99-109); CREATININE 2.6 MG/DL (0.6-1.3); GFR ESTIMATE (CALCULATED) 19 mL/min/; GLUCOSE 155 mg/dL (70-99); POTASSIUM 4.8 MEQ/L (3.7-5.4); SODIUM 133 MEQ/L (136-147); TOTAL PROTEIN 5.2 G/DL (6.4-8.3); UREA NITROGEN (BUN) 55 mg/dL (9-23)
[2018-02-25 07:05] LABS: AST (GOT) 15 IU/L (2-34); TOTAL BILIRUBIN 0.3 MG/DL (0.0-1.0)
[2018-02-25 07:10] VITALS: BP 180/90
[2018-02-25 10:08] VITALS: BP 141/81
[2018-02-25 15:00] VITALS: BP 160/80
[2018-02-25 23:22] VITALS: BP 144/68
[2018-02-26 07:11] VITALS: BP 136/65
[2018-02-26 07:14] LABS: ALBUMIN 2.8 G/DL (3.2-4.8); CHLORIDE 105 MEQ/L (99-109); CREATININE 2.3 MG/DL (0.6-1.3); GFR ESTIMATE (CALCULATED) 22 mL/min/; GLUCOSE 122 mg/dL (70-99); PHOSPHORUS 4.8 mg/dL (2.5-4.9); POTASSIUM 5.1 MEQ/L (3.7-5.4); SODIUM 136 MEQ/L (136-147); UREA NITROGEN (BUN) 51 mg/dL (9-23)
[2018-02-26 15:23] VITALS: BP 132/64
[2018-02-26 23:00] VITALS: BP 158/80
[2018-02-27 06:55] VITALS: BP 185/88
[2018-02-27 15:41] VITALS: BP 172/87
[2018-02-28] MEDS ORDERED: FUROSEMIDE80 MG PO (22:36)
== END 2018-02-27 20:21 | disposition home health service (06) | DRG 81 ==
LOC: EME 15:16 → EXP 15:16 → EDOF 18:25 → 5EAST 18:25 → ENRESERV 18:26 → CANRESERV 18:26 → ENRESERV 18:48 → 5EAST 21:10
PROVIDERS: Internal Medicine; Internal Medicine Nephrology
DX: G93.6 Cerebral edema (principal); C79.31 Secondary malignant neoplasm of brain; T50.2X1A Poisoning by carbonic-anhydrase inhibitors, benzothiadiazides and other diuretics, accidental (unintentional), initial encounter; N17.9 Acute kidney failure, unspecified; E86.0 Dehydration; E87.5 Hyperkalemia; R41.0 Disorientation, unspecified; T38.0X5A Adverse effect of glucocorticoids and synthetic analogues, initial encounter; C79.71 Secondary malignant neoplasm of right adrenal gland; C34.11 Malignant neoplasm of upper lobe, right bronchus or lung; K21.9 Gastro-esophageal reflux disease without esophagitis; F32.9 Major depressive disorder, single episode, unspecified; I12.9 Hypertensive chronic kidney disease with stage 1 through stage 4 chronic kidney disease, or unspecified chronic kidney disease; N18.3 Chronic kidney disease, stage 3 (moderate); I48.0 Paroxysmal atrial fibrillation; D64.9 Anemia, unspecified; E66.9 Obesity, unspecified; I42.9 Cardiomyopathy, unspecified; I27.20 Pulmonary hypertension, unspecified; E78.5 Hyperlipidemia, unspecified; N25.81 Secondary hyperparathyroidism of renal origin; E55.9 Vitamin D deficiency, unspecified; M10.9 Gout, unspecified; F41.9 Anxiety disorder, unspecified; E03.9 Hypothyroidism, unspecified; G47.30 Sleep apnea, unspecified; Z68.33 Body mass index [BMI] 33.0-33.9, adult; Z88.1 Allergy status to other antibiotic agents; Z98.84 Bariatric surgery status; Z86.73 Personal history of transient ischemic attack (TIA), and cerebral infarction without residual deficits; Z87.11 Personal history of peptic ulcer disease
CPT/HCPCS: 70450; 71046; 71250; 74176; 80048; 80053; 80069; 81003; 83540; 84466; 84484; 84550; 85025; 85027; 93005; 97530 GO; 97530 GP; 99281; 99285; C1753; C9113; J0360; J1100; J1644; J7030

== ENCOUNTER 2018-02-28 17:39 | Inpatient (IN) | payer OTHER, BC ==
[~2018-02-28] VITALS: Ht 162.6 cm; Wt 82.0 kg
[~2018-02-28 17:39] MED LIST changes: +CYANOCOBAL1000 MCG/2 IM; +D3 + K2 DOTS 11 EACH PO; +DIFLUCAN200 MG PO; +HAIR-SKIN-NAIL1 EACH PO; +HEPARIN SO5000 UNIT3 SC; +OMEPRAZOLE20 MG PO; +TUDORZA PRESS400 MCG IH; +VITAMIN A10000 UNIT PO; +VITAMIN D31000 UNIT PO
[2018-02-28 18:40] LABS: BASOPHIL (%) 0.4 % (0-1); BASOPHIL COUNT 0.1 K/uL (0-0.1); EOSINOPHIL (%) 0.1 % (0-5); HEMATOCRIT 37.3 % (36.0-46.0); HEMOGLOBIN 11.8 G/DL (11.9-15.5); LYMPHOCYTE (%) 10.2 % (15-42); LYMPHOCYTE COUNT 2.8 K/uL (1.0-2.8); MCH 27.1 PG (29.0-34.0); MCHC 31.6 G/DL (30.0-36.0); MCV 85.7 FL (83-99); MONOCYTE COUNT 1.7 K/uL (0-0.8); NEUTROPHIL (%) 80.3 % (45-76); NEUTROPHIL COUNT 21.9 K/uL (1.8-6.4); NRBC (%) 0.3 /100 WBC (0-0); PLATELET COUNT 287 K/uL (156-360); RBC DIS.WIDTH-CV 17.2 % (11.8-14.6); RBC DIS.WIDTH-SD 52.5 % (39-53); RED BLOOD COUNT 4.35 M/uL (3.80-5.20); WHITE BLOOD COUNT 27.3 K/uL (4.1-10.2)
[2018-02-28 18:41] LABS: INTER. NORMALIZED RATIO 1.2
[2018-02-28 18:42] LABS: ALBUMIN 3.3 g/dL (3.2-4.8); CHLORIDE 108 mEq/L (99-109); POTASSIUM 4.1 mEq/L (3.7-5.4); SODIUM 137 mEq/L (136-147)
[2018-02-28 18:44] LABS: PTT 22.4 SEC (25-37)
[2018-02-28 18:45] LABS: TOTAL PROTEIN 6.4 g/dL (6.4-8.3)
[2018-02-28 18:47] LABS: TOTAL BILIRUBIN 0.3 mg/dL (0.0-1.0)
[2018-02-28 18:48] LABS: ALKALINE PHOSPHATASE 142 IU/L (3-129); CREATININE 2.5 mg/dL (0.6-1.3); GFR ESTIMATE (CALCULATED) 20 mL/min/; GLUCOSE 267 mg/dL (70-99)
[2018-02-28 18:51] LABS: ALT (GPT) 102 IU/L (3-49)
[2018-02-28 18:54] LABS: TROP-I INTERPRETATION NEGATIVE; TROPONIN-I 0.26 ng/mL (0.0-0.30)
[2018-02-28 19:04] LABS: UREA NITROGEN (BUN) 57 mg/dL (9-23)
[2018-02-28 19:06] LABS: AST (GOT) 190 IU/L (2-34)
[2018-02-28] MEDS ORDERED: FUROSEMIDE80 MG PO (22:36)
[2018-02-28 23:50] VITALS: BP 94/54
[2018-03-01] VITALS (13 sets, daily range): BP systolic 73–145; BP diastolic 44–85
[2018-03-01 14:33] LABS: ALBUMIN 2.7 G/DL (3.2-4.8); CHLORIDE 100 MEQ/L (99-109); CREATININE 2.6 MG/DL (0.6-1.3); GFR ESTIMATE (CALCULATED) 19 mL/min/; POTASSIUM 4.7 MEQ/L (3.7-5.4); UREA NITROGEN (BUN) 66 mg/dL (9-23)
[2018-03-01 14:34] LABS: GLUCOSE 117 mg/dL (70-99); SODIUM 129 MEQ/L (136-147)
[2018-03-01 16:18] LABS: COMMENTS - BLOOD GASES A+C+; DEVICE NC; O2 FLOW 3 L/MIN; PCO2 29 mm Hg (35-45); PO2 53 mm Hg (80-100); SITE RB; TOTAL RESP RATE 48 resp/min
[2018-03-01 16:19] LABS: BASE EXCESS -10.9 mEq/L (-3 to +3); BICARBONATE 14.3 mEq/L (22-26); CARBOXY HGB 1.5 % (0-5); METHEMOGLOBIN 0.6 % (0-1.5); O2 SATURATION (CALCULATED) 86.3 % (95-99)
[2018-03-02 00:03] VITALS: BP 105/83
[2018-03-02 01:00] VITALS: BP 72/42
[2018-03-02 01:31] LABS: BASE EXCESS -20.6 mEq/L (-3 to +3); BICARBONATE 10.6 mEq/L (22-26); CARBOXY HGB 1.3 % (0-5); DEVICE NRBM; FI02 100 %; METHEMOGLOBIN 0.7 % (0-1.5); O2 FLOW 15 L/MIN; PCO2 46 mm Hg (35-45); PO2 70 mm Hg (80-100); SITE RF; pH 6.97 (7.35-7.45)
== END 2018-03-02 03:45 | DRG 175 ==
LOC: EME 17:39 → 4EAST 22:32 → EDOF 22:32 → ENRESERV 22:35 → 4EAST 23:45 → ENRESERV 03-01 16:42 → 4WEST 03-01 16:55
PROVIDERS: Emergency Medicine; Internal Medicine; Internal Medicine Critical Care Medicine; Internal Medicine Nephrology; Surgery
DX: I26.09 Other pulmonary embolism with acute cor pulmonale (principal); J96.01 Acute respiratory failure with hypoxia; R57.9 Shock, unspecified; G93.6 Cerebral edema; C79.31 Secondary malignant neoplasm of brain; C34.91 Malignant neoplasm of unspecified part of right bronchus or lung; C78.1 Secondary malignant neoplasm of mediastinum; C79.71 Secondary malignant neoplasm of right adrenal gland; E87.2 Acidosis; E86.0 Dehydration; I13.0 Hypertensive heart and chronic kidney disease with heart failure and stage 1 through stage 4 chronic kidney disease, or unspecified chronic kidney disease; E11.22 Type 2 diabetes mellitus with diabetic chronic kidney disease; N18.9 Chronic kidney disease, unspecified; I50.9 Heart failure, unspecified; I42.9 Cardiomyopathy, unspecified; I48.0 Paroxysmal atrial fibrillation; D64.9 Anemia, unspecified; K21.9 Gastro-esophageal reflux disease without esophagitis; E66.9 Obesity, unspecified; Z68.33 Body mass index [BMI] 33.0-33.9, adult; F32.9 Major depressive disorder, single episode, unspecified; Z86.73 Personal history of transient ischemic attack (TIA), and cerebral infarction without residual deficits; Z87.11 Personal history of peptic ulcer disease; Z87.891 Personal history of nicotine dependence; Z98.84 Bariatric surgery status; Z66 Do not resuscitate
CPT/HCPCS: 36600; 71045; 71046; 78582; 80048 91; 80053; 80069; 81003; 82803; 82948; 83605; 83880; 84484; 85025; 85027; 85610; 85730; 87641; 93005; 93970; 94640; 94760; 94799; 99281; 99285; A9539; A9540; J1200; J2405; J2765; J7030